=== PATIENT | female | born 1990 | race Hispanic/Latino ===

== ENCOUNTER 2017-05-06 16:07 | Emergency (ER) | payer SELFPAY ==
[2017-05-06] MEDS ORDERED: ONDANSETRON ODT 4 MG TAB ONE (16:49)
[2017-05-06] MEDS ORDERED: ACETAMINOPHEN 325 MG TAB ONE (16:49)
[2017-05-06 16:50] LABS: BILIRUBIN,URINE Negative (NEGATIVE); COLOR,URINE Yellow (YELLOW); GLUCOSE, URINE (UA) Negative (NEGATIVE); KETONES,URINE Negative (NEGATIVE); LEUKOCYTE ESTERASE ,URINE Trace (NEGATIVE); NITRATE,URINE Negative (NEGATIVE); OCCULT BLOOD,URINE Moderate (NEGATIVE); PROTEIN,URINE Negative (NEGATIVE)
[2017-05-06 16:51] LABS: APPEARANCE,URINE SLIGHTLY CLOUDY (CLEAR)
[2017-05-06 16:53] LABS: HCG,QUAL RESULT NEGATIVE (NEGATIVE)
[2017-05-06 17:03] LABS: BACTERIA,URINE Few /HPF (None Seen); MUCUS,URINE Few LPF (None Seen); SQUAMOUS EPITHELIAL CELL,UR Moderate /LPF (0-2)
[2017-05-06 17:10] LABS: RAPID GROUP A STREP NEGATIVE (NEGATIVE)
== END 2017-05-06 17:40 | disposition home or self-care (01) ==
LOC: EDH 16:07
DX: B34.9 Viral infection, unspecified (principal)
CPT/HCPCS: 81001; 81025; 87088; 87804; 87880

== ENCOUNTER 2017-05-07 11:14 | Emergency (ER) | payer SELFPAY ==
[2017-05-07 11:38] LABS: APPEARANCE,URINE CLEAR (CLEAR); BILIRUBIN,URINE NEGATIVE (NEGATIVE); COLOR,URINE YELLOW (YELLOW); GLUCOSE, URINE (UA) NEGATIVE (NEGATIVE); KETONES,URINE NEGATIVE (NEGATIVE); LEUKOCYTE ESTERASE ,URINE SMALL (NEGATIVE); NITRATE,URINE NEGATIVE (NEGATIVE); OCCULT BLOOD,URINE TRACE-LYSED (NEGATIVE); PROTEIN,URINE NEGATIVE (NEGATIVE); UROBILINOGEN,URINE 0.2 mg/dL (0.2-1.0)
[2017-05-07 11:42] LABS: HCG,QUAL RESULT NEGATIVE (NEGATIVE)
[2017-05-07 11:45] LABS: AMPHET/METH SCREEN,URINE NEGATIVE (NEGATIVE); BARBITURATE SCREEN, URINE NEGATIVE (NEGATIVE); BENZODIAZEPINES SCREEN,URINE NEGATIVE (NEGATIVE); CANNABINOID SCREEN,URINE NEGATIVE (NEGATIVE); COCAINE SCREEN,URINE NEGATIVE (NEGATIVE); OPIATE SCREEN,URINE NEGATIVE (NEGATIVE); PHENCYCLIDINE SCREEN,URINE NEGATIVE (NEGATIVE)
[2017-05-07 12:13] LABS: BACTERIA,URINE Moderate /HPF (None Seen); RBC,URINE 0-1 /HPF (0-1)
== END 2017-05-07 12:02 | disposition home or self-care (01) ==
LOC: EDH 11:14
DX: R07.89 Other chest pain (principal); R51 Headache; R11.0 Nausea
CPT/HCPCS: 80305; 81025; 93005

== ENCOUNTER 2018-01-05 19:47 | Emergency (ER) | payer MEDICAID | END 2018-01-05 20:43 | disposition home or self-care (01) | LOC: EDH 19:47 | DX: S30.861A Insect bite (nonvenomous) of abdominal wall, initial encounter (principal); Z98.890 Other specified postprocedural states; W57.XXXA Bitten or stung by nonvenomous insect and other nonvenomous arthropods, initial encounter; Y93.89 Activity, other specified; Y92.89 Other specified places as the place of occurrence of the external cause; Y99.8 Other external cause status | CPT/HCPCS: 99281 ==